=== PATIENT | female | born 1985 | race Hispanic/Latino ===

== ENCOUNTER 2017-08-31 08:30 | Inpatient (IN) | payer MEDICAID ==
[~2017-08-31] VITALS: Ht 157.5 cm; Wt 76.7 kg
[~2017-08-31 08:30] MED LIST: IBUP-2070 PO
[2017-08-31] MEDS ORDERED: EPHEDRINE SULFATE 50 MG/ML AMPULE IVP PRN (09:45)
[2017-08-31] MEDS ORDERED: LACTATED RINGERS 1000ML 1,000 ML IV PRN (09:45)
[2017-08-31] MEDS ORDERED: OXYTOCIN-LR 20 UNITS/1000 ML 1,000 ML IV SCH (09:45)
[2017-08-31] MEDS ORDERED: LACTATED RINGERS 500 ML 500 ML IV PRN (09:45)
[2017-08-31] MEDS ORDERED: NALOXONE HCL 0.4 MG/1 ML ML IV PRN (09:45)
[2017-08-31] MEDS ORDERED: OXYTOCIN 10 USP UNITS/ML 20 UNIT in LACTATED RINGERS 1000ML 1,000 ML IV SCH (10:00)
[2017-08-31] MEDS ORDERED: OXYTOCIN 10 USP UNITS/ML ONE (10:12)
[2017-08-31 10:20] LABS: HEMATOCRIT 37.4 % (36-48); MEAN CORPUSCULAR HEMOGLOBIN 32.1 pg (27.0-33.0); MEAN CORPUSCULAR HGB CONC 35.4 g/dL (32.0-36.0); MEAN CORPUSCULAR VOLUME 90.7 fL (79-99); PLATELET COUNT (AUTO) 233 K/uL (130-400); RED BLOOD CELL COUNT(AUTO) 4.13 MIL/uL (4.00-5.50); RED CELL DISTRIBUTION WIDTH 13.2 % (11.0-15.5); WHITE BLOOD COUNT (AUTO) 10.2 K/uL (4.8-10.8)
[2017-08-31] MEDS ORDERED: LIDOCAINE HCL 1% 20 ML VIAL ONE (12:11)
[2017-08-31] MEDS ORDERED: LANOLIN 30GM OINTMENT TP PRN (12:45)
[2017-08-31] MEDS ORDERED: MEASLES/MUMPS/RUBELLA VACCINE, LIVE 0.5 ML/VIAL SQ PRN (12:45)
[2017-08-31] MEDS ORDERED: WITCH HAZEL 1 PAD TP PRN (12:45)
[2017-08-31] MEDS ORDERED: BENZOCAINE/LANOLIN/ALOE VERA 60 ML AEROSOL TP PRN (12:45)
[2017-08-31] MEDS ORDERED: DIPH,PERTUSS(ACELL),TET VAC/PF 0.5 ML VIAL IM PRN (12:45)
[2017-08-31] MEDS ORDERED: ACETAMINOPHEN 325 MG TAB PO PRN (12:45)
[2017-08-31] MEDS: IBUPROFEN 600 MG TABLET PO PRN (13:59)
[2017-08-31 14:15] VITALS: BP 120/68
[2017-08-31] MEDS ORDERED: DOCO200C5 PO (14:35)
[2017-08-31 15:45] VITALS: BP 124/71
[2017-08-31 20:05] VITALS: BP 121/74
[2017-08-31] MEDS: DOCUSATE SODIUM 100 MG CAP PO SCH (20:58)
[2017-08-31 23:02] VITALS: BP 119/75
[2017-09-01] MEDS: IBUPROFEN 600 MG TABLET PO PRN ×2 (01:34→09:04)
[2017-09-01 03:35] VITALS: BP 99/68
[2017-09-01 05:59] LABS: HEMATOCRIT 33.4 % (36-48); MEAN CORPUSCULAR HEMOGLOBIN 31.2 pg (27.0-33.0); MEAN CORPUSCULAR HGB CONC 34.3 g/dL (32.0-36.0); PLATELET COUNT (AUTO) 195 K/uL (130-400); RED BLOOD CELL COUNT(AUTO) 3.67 MIL/uL (4.00-5.50); RED CELL DISTRIBUTION WIDTH 13.1 % (11.0-15.5); WHITE BLOOD COUNT (AUTO) 14.5 K/uL (4.8-10.8)
[2017-09-01 07:29] VITALS: BP 121/82
[2017-09-01] MEDS: DOCUSATE SODIUM 100 MG CAP PO SCH (09:03)
[2017-09-01 11:14] VITALS: BP 114/80
[2017-09-01 11:35] LABS: HEPATITIS Bs ANTIGEN SCREEN P Negative (Negative)
== END 2017-09-01 12:50 | disposition home or self-care (01) | DRG 560 ==
LOC: EDH 08:30 → OBSVTOIN 08:31 → LDH 08:31 → WSH 14:05
PROVIDERS: ADMIT Obstetrics & Gynecology; ATTEND Obstetrics & Gynecology
PROC: 10E0XZZ Delivery of Products of Conception, External Approach (ICD-10-PCS; principal; 2017-08-31)
PROC: 0HQ9XZZ Repair Perineum Skin, External Approach (ICD-10-PCS; 2017-08-31)
PROC: 3E0234Z Introduction of Serum, Toxoid and Vaccine into Muscle, Percutaneous Approach (ICD-10-PCS; 2017-08-31)
PROC: 3E0134Z Introduction of Serum, Toxoid and Vaccine into Subcutaneous Tissue, Percutaneous Approach (ICD-10-PCS; 2017-08-31)
PROC: 3E0R3BZ Introduction of Anesthetic Agent into Spinal Canal, Percutaneous Approach (ICD-10-PCS; 2017-08-31)
PROC: 00HU33Z Insertion of Infusion Device into Spinal Canal, Percutaneous Approach (ICD-10-PCS; 2017-08-31)
DX: O70.0 First degree perineal laceration during delivery (principal); Z23 Encounter for immunization; Z37.0 Single live birth; Z3A.37 37 weeks gestation of pregnancy
CPT/HCPCS: 36415; 85027; 86592; 86850; 86900; 86901; 87340; 88307; J2590; J7120

== ENCOUNTER 2020-07-30 13:44 | Emergency (ER) | payer BC, MEDICAID, OTHER ==
[~2020-07-30 13:44] MED LIST changes: +DOCO200C5 PO; -IBUP-2070 PO
[2020-07-30] MEDS ORDERED: LORAZEPAM 0.5 MG TABLET ONE (14:33)
[2020-07-30 15:18] LABS: BASOPHILS % (AUTO) 0.7 % (0.0-5.0); EOSINOPHILS % (AUTO) 1.9 % (0.0-8.0); HEMATOCRIT 39.5 % (36-48); LYMPHOCYTES % (AUTO) 36.7 % (21.0-51.0); MEAN CORPUSCULAR HEMOGLOBIN 30.4 pg (27.0-33.0); MEAN CORPUSCULAR HGB CONC 33.9 g/dL (32.0-36.0); MEAN CORPUSCULAR VOLUME 89.6 fL (79-99); MONOCYTES % (AUTO) 8.3 % (3.0-13.0); NEUTROPHILS % (AUTO) 52.3 % (40.0-77.0); PLATELET COUNT (AUTO) 222 K/uL (130-400); RED BLOOD CELL COUNT(AUTO) 4.41 MIL/uL (4.00-5.50); RED CELL DISTRIBUTION WIDTH 12.3 % (11.0-15.5); WHITE BLOOD COUNT (AUTO) 7.2 K/uL (4.8-10.8)
[2020-07-30 15:19] LABS: APPEARANCE,URINE Clear (CLEAR); BILIRUBIN,URINE Negative (NEGATIVE); COLOR,URINE Yellow (YELLOW); GLUCOSE, URINE (UA) Negative (NEGATIVE); KETONES,URINE Negative (NEGATIVE); LEUKOCYTE ESTERASE ,URINE Trace (NEGATIVE); NITRATE,URINE Negative (NEGATIVE); OCCULT BLOOD,URINE Negative (NEGATIVE); PH,URINE 8.5 (5.0-8.0); PROTEIN,URINE Negative (NEGATIVE)
[2020-07-30 15:23] LABS: HCG,QUAL RESULT NEGATIVE (NEGATIVE)
[2020-07-30 15:28] LABS: CREATININE 0.7 mg/dL (0.5-1.5); POTASSIUM 3.5 mmol/L (3.5-5.1)
[2020-07-30 15:37] LABS: ALBUMIN 4.4 g/dL (3.5-5.0); BILIRUBIN,TOTAL 0.5 mg/dL (0.2-1.0); TOTAL PROTEIN, SERUM 8.3 g/dL (6.0-8.3)
[2020-07-30 15:47] LABS: BACTERIA,URINE Rare /HPF (None Seen); MUCUS,URINE Rare LPF (None Seen); RBC,URINE 0-1 /HPF (0-1); SQUAMOUS EPITHELIAL CELL,UR Few /HPF (0-2)
== END 2020-07-30 17:02 | disposition home or self-care (01) ==
LOC: EDH 13:44
DX: F41.9 Anxiety disorder, unspecified (principal); R07.89 Other chest pain; R06.02 Shortness of breath; Z20.822 Contact with and (suspected) exposure to COVID-19
CPT/HCPCS: 36415; 71045; 80053; 81001; 81025; 84484; 85025; 87426; 93005; U0003